=== PATIENT | male | born 1960 | race Caucasian/White ===

== ENCOUNTER 2017-05-13 10:09 | Emergency (ER) | payer MEDICARE, MEDICAID ==
[2017-05-13] MEDS ORDERED: Ondansetron 4 MG/2 ML SDV IV ONE (10:18)
[2017-05-13] MEDS ORDERED: Sodium Chloride 0.9% 10 ML Syringe FLUSH PRN (10:18)
[2017-05-13] MEDS ORDERED: diphenhydrAMINE 50 MG/ML SDV IVPUSH ONE (10:18)
[2017-05-13] MEDS ORDERED: Ketorolac 30 MG/ML SDV IVPUSH ONE (10:18)
[2017-05-13] MEDS ORDERED: Sodium Chloride 0.9% 1,000 ML IV ONE (10:25)
--- NOTE | 2017-05-13 10:31 | EDM.PDOC ---
ED HPI GENERAL MEDICAL PROBLEM - General Chief Complaint: Gastrointestinal Problem Stated Complaint: [id number] SICK THROWING UP Time Seen by Provider: 05/13/17 10:20 Source of Information: Reports: Patient History Limitations: Reports: No Limitations - History of Present Illness INITIAL COMMENTS - FREE TEXT/NARRATIVE: Patient comes emergency department today with generalized body aches as well as nausea vomiting and diarrhea. Starting approximately 2300 hrs. last night the patient has had vomiting throughout the night to the point where he was unable to sleep as he has been in the bathroom most of the night. He does complain of being hot and cold but no documented fever. He has some generalized abdominal cramping primarily with diarrhea. His diarrhea started this morning and he has had multiple diarrheal stools. Has no shortness of breath chest pain or difficulty breathing. He has little appetite. He feels very fatigued and drained. He has no abdominal pain other than when he has a diarrheal stool or vomiting. - Related Data Allergies Allergy/AdvReac Type Severity Reaction Status Date / Time latex Allergy Rash Verified 05/13/17 10:13 Home Meds: Home Meds Aspirin [Adult Low Dose Aspirin EC] 81 mg PO DAILY 11/12/13 [History] Cholecalciferol (Vitamin D3) [Vitamin D3] 1 tab PO DAILY 11/12/13 [History] ClonazePAM [KlonoPIN] 1 mg PO BID 11/12/13 [History] Docusate Sodium/Sennosides [Senna Plus Tablet] 1 each PO BID 11/12/13 [History] FLUoxetine [PROzac] 20 mg PO DAILY 11/12/13 [History] Levothyroxine Sodium [Tirosint] 50 mcg PO DAILY 11/12/13 [History] Liothyronine [Cytomel] 25 mcg PO DAILY 11/12/13 [History] [place] Carbonate 300 mg PO DAILY 11/12/13 [History] Milnacipran [Savella] 150 mg PO BID 11/12/13 [History] Modafinil 200 mg PO DAILY 11/12/13 [History] Pregabalin [Lyrica] 150 mg PO BID 11/12/13 [History] Sennosides/Docusate Sodium [Senna-Docusate Sodium] 1 each PO DAILY 11/12/13 [ History] Testosterone [Testim] 5 gm TD BEDTIME 11/12/13 [History] buPROPion HCl [Forfivo Xl] 450 mg PO DAILY 11/12/13 [History] prednisoLONE [Millipred] 5 mg PO DAILY 11/12/13 [History] Past Medical History Musculoskeletal History: Reports: Other (See Below) Other Musculoskeletal History: chronic bilateral arm/shoulder pain Neurological History: Reports: Neuropathy, Peripheral - Infectious Disease History Infectious Disease History: Reports: Chicken Pox, Measles, Mumps, Rubella - Past Surgical History Musculoskeletal Surgical History: Reports: Carpal Tunnel, Other (See Below) Other Musculoskeletal Surgeries/Procedures:: right arm surgeries for pinched nerves Social & Family History - Family History Family Medical History: Noncontributory - Tobacco Use Smoking Status *Q: Never Smoker Second Hand Smoke Exposure: No - Caffeine Use Caffeine Use: Reports: Coffee, Soda - Alcohol Use Days Per Week of Alcohol Use: 3 Number of Drinks Per Day: 3 Total Drinks Per Week: 9 - Recreational Drug Use Recreational Drug Use: No ED ROS GENERAL - Review of Systems Review Of Systems: ROS reveals no pertinent complaints other than HPI. ED EXAM, GI/ABD - Physical Exam Exam: See Below Exam Limited By: No Limitations General Appearance: Alert, WD/WN Eyes: Bilateral: EOMI Ears: Normal External Exam, Normal Canal, Hearing Grossly Normal, Normal TMs Nose: Normal Inspection Throat/Mouth: Normal Lips, Normal Teeth, Normal Gums. No: Normal Inspection ( Oral mucosa dry otherwise normal inspection.) Head: Atraumatic, Normocephalic Neck: Normal Inspection, Supple, Non-Tender Respiratory/Chest: No Respiratory Distress, Lungs Clear, No Accessory Muscle Use Cardiovascular: Normal Peripheral Pulses, Regular Rate, Rhythm, No Edema GI/Abdominal Exam: Normal Bowel Sounds, Soft, Non-Tender, No Organomegaly, No Distention, No Abnormal Bruit (Male) Exam: Deferred Rectal (Males) Exam: Deferred Back Exam: Normal Inspection Extremities: Normal Inspection, No Pedal Edema, Normal Capillary Refill Neurological: Alert, Oriented Psychiatric: Normal Affect, Normal Mood Skin Exam: No Rash, Diaphoretic, Increased Warmth, Pallor Course - Vital Signs Last Recorded V/S: Last Vital Signs Temp 36.6 C 05/13/17 10:15 Pulse 112 H 05/13/17 10:15 Resp 16 05/13/17 10:15 BP 156/78 H 05/13/17 10:15 Pulse Ox 100 05/13/17 10:15 - Orders/Labs/Meds Orders: Active Orders 24 hr Category Date Time Status Peripheral IV Care [RC] . DIRECTED Care 05/13/17 10:18 Active Sodium Chloride 0.9% [Normal Saline] 1,000 ml Med 05/13/17 11:30 Active IV ASDIRECTED Sodium Chloride 0.9% [Saline Flush] Med 05/13/17 10:18 Active 10 ml FLUSH ASDIRECTED PRN Peripheral IV Insertion Adult [OM.PC] Stat Oth 05/13/17 10:18 Ordered Medication Orders Sodium Chloride (Normal Saline) 1,000 mls @ 500 mls/hr IV ASDIRECTED MATT Last Admin: 05/13/17 11:26 Dose: 500 mls/hr Sodium Chloride (Saline Flush) 10 ml FLUSH ASDIRECTED PRN PRN Reason: Keep Vein Open Last Admin: 05/13/17 10:32 Dose: 10 ml Labs: Laboratory Tests 05/13/17 05/13/17 05/13/17 Range/Units 10:21 10:21 12:39 WBC 12.2 H (5.0-10.0) 10^3/uL RBC 5.42 (4.6-6.2) 10^6/uL Hgb 17.3 (14.0-18.0) g/dL Hct 47.8 (40.0-54.0) % MCV 88.2 (80-100) fL MCH 31.9 (27.0-34.0) pg MCHC 36.2 H (33.0-35.0) g/dL Plt Count 257 (150-450) 10^3/uL Neut % (Auto) 90.8 H (42.2-75.2) % Lymph % (Auto) 4.8 L (20.5-50.1) % [place] % (Auto) 4.0 (2-8) % Eos % (Auto) 0.2 L (1.0-3.0) % Baso % (Auto) 0.2 (0.0-1.0) % Sodium 133 L (135-145) mmol/L Potassium 3.9 (3.6-5.0) mmol/L Chloride 101 (101-111) mmol/L Carbon Dioxide 20.0 L (21.0-31.0) mmol/L Anion Gap 15.9 BUN 15 (7-18) mg/dL Creatinine 1.2 (0.6-1.3) mg/dL Est Cr Clr Drug Dosing TNP Estimated GFR (MDRD) > 60 BUN/Creatinine Ratio 12.50 Glucose 302 H (74-105) mg/dL Calcium 8.6 (8.4-10.2) mg/dl Total Bilirubin 1.0 (0.2-1.0) mg/dL AST 36 (10-42) IU/L ALT 32 (10-60) IU/L Alkaline Phosphatase 61 (42-121) IU/L Total Protein 7.8 (6.7-8.2) g/dl Albumin 4.3 (3.2-5.5) g/dl Globulin 3.5 Albumin/Globulin Ratio 1.23 Urine Color Yellow (YELLOW) Urine Appearance Clear (CLEAR) Urine pH 5.5 (5.0-9.0) Ur Specific [place] 1.010 (1.005-1.030) Urine Protein Negative (NEGATIVE) Urine Glucose (UA) 500 H (NEGATIVE) Urine Ketones Trace H (NEGATIVE) Urine Occult Blood Negative (NEGATIVE) Urine Nitrite Negative (NEGATIVE) Urine Bilirubin Negative (NEGATIVE) Urine Urobilinogen 0.2 (0.2-1.0) mg/dL Ur Leukocyte Esterase Negative (NEGATIVE) Urine RBC 0-5 /HPF Urine WBC 0-5 (0-5/HPF) /HPF Ur Epithelial Cells Rare /HPF Urine Bacteria Rare (0-FEW/HPF) /HPF Urine Mucus Rare /LPF Microbiology 05/13/17 10:21 Nasopharyngeal Swab - Nare, Right Influenza Type A Antigen Screen - Final NEGATIVE INFLUENZA A VIRUS AG 05/13/17 10:21 Nasopharyngeal Swab - Nare, Right Influenza Type B Antigen Screen - Final NEGATIVE INFLUENZA B VIRUS AG Meds: Medications Generic Name Dose Route Start Last Admin Trade Name Freq PRN Reason Stop Dose Admin Sodium Chloride 1,000 mls @ 500 mls/hr 05/13/17 11:30 05/13/17 11:26 Normal Saline IV 500 mls/hr ASDIRECTED MATT Administration Sodium Chloride 10 ml 05/13/17 10:18 05/13/17 10:32 Saline Flush FLUSH 10 ml ASDIRECTED PRN Administration Keep Vein Open Discontinued Medications Generic Name Dose Route Start Last Admin Trade Name Freq PRN Reason Stop Dose Admin Diphenhydramine HCl 25 mg 05/13/17 10:18 05/13/17 10:31 Benadryl IVPUSH 05/13/17 10:19 25 mg ONETIME ONE Administration Sodium Chloride 1,000 mls @ 999 mls/hr 05/13/17 10:25 05/13/17 10:32 Normal Saline IV 05/13/17 11:25 999 mls/hr .BOLUS ONE Administration Ketorolac Tromethamine 30 mg 05/13/17 10:18 05/13/17 10:31 Toradol IVPUSH 05/13/17 10:19 30 mg ONETIME ONE Administration Ondansetron HCl 4 mg 05/13/17 10:18 05/13/17 10:31 Zofran IV 05/13/17 10:19 4 mg ONETIME ONE Administration - Re-Assessments/Exams Free Text/Narrative Re-Assessment/Exam: 05/13/17 10:30 IV normal saline 1 L bolus. Ketorolac 30 mg IV push. Benadryl 25 mg IV push. Zofran 4 mg IV push. 05/13/17 11:22 Patient feels much better with the above therapy although is still unable to urinate and still somewhat tachycardic. His influenza screen is negative his laboratory evaluation is pretty unremarkable. We'll continue some IV hydration as he is most likely well dehydrated due to the multiple vomiting and diarrhea. Departure - Departure Time of Disposition: 13:09 Disposition: Home, Self-Care 01 Clinical Impression: Gastroenteritis, Dehydration - Discharge Information Instructions: Viral Gastroenteritis, Adult, [id number], Dehydration, Adult, [id number] Forms: ED Department Discharge Additional Instructions: Push oral fluids over the next few days especially electrolyte containing materials such as Gatorade and or Powerade. Stay away from dairy products until symptom resolution. Slow advance diet as tolerated. Rest over the next few days. Zofran 1 tablet every 6 hrs as needed for nausea and vomiting. RX given to the patient. Return to the ED if new or worsening symptoms. Recheck with primary care provider in the next 4-6 days if not improving sooner if worse. - My Orders Last 24 Hours: My Active Orders 05/13/17 10:18 Peripheral IV Care [RC] . DIRECTED Sodium Chloride 0.9% [Saline Flush] 10 ml FLUSH ASDIRECTED PRN Peripheral IV Insertion Adult [OM.PC] Stat 05/13/17 11:30 Sodium Chloride 0.9% [Normal Saline] 1,000 ml IV ASDIRECTED - Assessment/Plan Last 24 Hours: My Active Orders 05/13/17 10:18 Peripheral IV Care [RC] . DIRECTED Sodium Chloride 0.9% [Saline Flush] 10 ml FLUSH ASDIRECTED PRN Peripheral IV Insertion Adult [OM.PC] Stat 05/13/17 11:30 Sodium Chloride 0.9% [Normal Saline] 1,000 ml IV ASDIRECTED Assessment:: Gastroenteritis Dehydration. Plan: Push oral fluids over the next few days especially electrolyte containing materials such as Gatorade and or Powerade. Stay away from dairy products until symptom resolution. Slow advance diet as tolerated. Rest over the next few days. Zofran 1 tablet every 6 hrs as needed for nausea and vomiting. RX given to the patient. Return to the ED if new or worsening symptoms. Recheck with primary care provider in the next 4-6 days if not improving sooner if worse.
[2017-05-13 10:55] LABS: ANION GAP 15.9; CHLORIDE,CL 101 mmol/L (101-111); SODIUM,NA 133 mmol/L (135-145)
[2017-05-13] MEDS ORDERED: Sodium Chloride 0.9% 1,000 ML IV SCH (11:30)
== END 2017-05-13 13:17 | disposition home or self-care (01) ==
LOC: DL.ED 10:09
DX: K52.9 Noninfective gastroenteritis and colitis, unspecified (principal); E86.0 Dehydration; Z91.040 Latex allergy status; Z79.82 Long term (current) use of aspirin; Z79.899 Other long term (current) drug therapy
CPT/HCPCS: 36415; 80053; 81001; 85025; 87804; 96361; 96374; 96375; 99282; 99284; J1200; J1885; J2405; J7030; J7050

== ENCOUNTER 2023-09-13 05:45 | Emergency (ER) | payer MEDICARE, MEDICAID ==
[2023-09-13] MEDS: Butorphanol 2 MG/ML SDV IM ONE (06:12)
== END 2023-09-13 06:31 | disposition home or self-care (01) ==
LOC: DL.ED 05:45
DX: M75.21 Bicipital tendinitis, right shoulder (principal); M25.562 Pain in left knee; M77.8 Other enthesopathies, not elsewhere classified; Z91.040 Latex allergy status; Z79.82 Long term (current) use of aspirin; Z79.899 Other long term (current) drug therapy
CPT/HCPCS: 96372; 99283; J0595

== ENCOUNTER 2023-11-19 03:32 | Emergency (ER) | payer MEDICARE, MEDICAID ==
[2023-11-19] MEDS: GI Cocktail Oral Solution 30 ML PO ONE (03:51)
[2023-11-19 04:02] LABS: BASOPHILS PERCENT AUTO 0.5 % (0.0-1.0); EOSINOPHILS PERCENT AUTO 1.2 % (1.0-3.0); HEMATOCRIT 37.4 % (40.0-54.0); HEMOGLOBIN 12.8 g/dL (14.0-18.0); LYMPHOCYTES PERCENT AUTO 34.3 % (20.5-50.1); MEAN CORPUSCULAR HEMOGLOBIN 32.2 pg (27.0-34.0); MEAN CORPUSCULAR HGB CONC 34.2 g/dL (33.0-35.0); MEAN CORPUSCULAR VOLUME 94.2 fL (80-100); MONOCYTES PERCENT AUTO 9.7 % (2-8); NEUTROPHILS PERCENT AUTO 54.3 % (42.2-75.2); PLATELET COUNT,PLT 263 10^3/uL (150-450); RED BLOOD CELL COUNT 3.97 10^6/uL (4.6-6.2); WHITE BLOOD CELL COUNT,WBC 8.3 10^3/uL (5.0-10.0)
[2023-11-19 04:17] LABS: A/G RATIO 0.9; ALBUMIN 3.5 g/dL (3.4-5.0); ANION GAP 10.3 mEq/L (7-13); BILIRUBIN TOTAL 0.5 mg/dL (0.2-1.0); BUN/CREATININE RATIO 19.3 (No establ ref range); CALCIUM 9.2 mg/dL (8.5-10.1); CREATININE 1.45 mg/dL (0.70-1.30); EST CRCL DRUG DOSING (CG) 57.98 mL/min; POTASSIUM,K 4.3 mmol/L (3.5-5.1); PROTEIN TOTAL,TP 7.3 g/dL (6.4-8.2)
[2023-11-19] MEDS: Ketorolac 30 MG/ML SDV IM ONE (05:03)
[2023-11-19] MEDS: Take Home: Acetaminophen/HYDROcodone 325-5 MG, 5 Tab Pack PO ONE (05:51)
== END 2023-11-19 05:54 | disposition home or self-care (01) ==
LOC: DL.ED 03:32
DX: K21.9 Gastro-esophageal reflux disease without esophagitis (principal); I10 Essential (primary) hypertension; Z79.899 Other long term (current) drug therapy; Z79.52 Long term (current) use of systemic steroids; Z79.82 Long term (current) use of aspirin; Z91.040 Latex allergy status
CPT/HCPCS: 36415; 80053; 83690; 84484; 85025; 96372; 99284; A9270-GY; J1885

== ENCOUNTER 2023-11-19 23:07 | Emergency (ER) | payer MEDICARE, MEDICAID | END 2023-11-19 23:58 | disposition left against medical advice (07) | LOC: DL.ED 23:07 | DX: Z53.21 Procedure and treatment not carried out due to patient leaving prior to being seen by health care provider (principal) ==